=== PATIENT | male | born 1960 | race Caucasian/White ===

== ENCOUNTER 2017-11-10 09:57 | Day surgery (SDC) | payer OTHER, SELFPAY ==
[2017-11-06 15:20] VITALS: BMI 29.2
[2017-11-10] VITALS (10 sets, daily range): BP systolic 116–139; BP diastolic 71–96; PULSE 66–88; RESP 7–19; TEMP 36.2–37.2; O2SAT 97–100; BMI 29.2
--- NOTE | 2017-11-10 | DI.RAD.S_ITS ---
PROCEDURE: XR LUMBAR SPINE 1V INDICATIONS: L3-4 LAMINECTOMY TECHNIQUE: Single views of the lumbar spine were acquired. COMPARISON: None. FINDINGS: Single spot fluoroscopic intraoperative images demonstrating surgical instrument with the tip projecting in the posterior paraspinal soft tissues at the level of L3-L4 Dictated by: Fabrice Bates M.D. on 11/10/2017 at 13:12 Approved by: Fabrice Bates M.D. on 11/10/2017 at 13:12
[2017-11-10] MEDS: LACTATED RINGERS 1,000 ML 42 ML IV (10:37)
--- NOTE | 2017-11-10 10:50 | PM.PREOP ---
Pre-operative Note Interval Note Pre-op Check: Yes History & Physical Reviewed by Physician and Yes Exam Performed Changes: No
[2017-11-10] MEDS: MIDAZOLAM 2 MG/2 ML VIAL IV (10:56)
[2017-11-10] MEDS: CEFAZOLIN 2 GM/100 ML FROZ.PIGGY IV (11:06)
--- NOTE | 2017-11-10 11:37 | SUR.OPER ---
Prone on spine table, head in foam head support, padded chest and pelvic supports, gel pad at knees, lower legs supported by pillows; nipples, genitalia and toes free of pressure, arms secured on foam padded arm boards at <90 degrees abduction. Tape over blanket at thigh secured to table.
[2017-11-10] MEDS: THROMBIN (BOVINE) 5,000 UNIT VIAL 5000 UNIT TOP (11:52)
[2017-11-10] MEDS: SODIUM CHLORIDE 0.9% 1,000 ML, GENTAMICIN 80 MG IRR ×2 (11:53→12:32)
[2017-11-10] MEDS: VANCOMYCIN 1,000 MG VIAL 1000 MG TOP (11:57)
[2017-11-10] MEDS: BUPIVACAINE 0.25% (PF) 8 ML, fentaNYL 100 MCG INJ (12:20)
--- NOTE | 2017-11-10 12:29 | PM.OP.1 ---
Operative Date/Time/Diagnoses Date of procedure: 11/10/17 Time of procedure: 12:29 Pre-op diagnosis: Lumbar disc herniation with radiculopathy Post-op diagnosis: same Procedure & Clinicians Procedure: L3-4 right-sided diskectomy Use of microscope Placement of epidural catheter Same procedure as scheduled: Yes Indications: [age] year old male with intractable pain from a disc herniation and also with foot drop.. They had failed conservative management and requested operative intervention. Risks and benefits of surgery were discussed and appropriate consents were obtained. Surgeon: Abdullahi [employer]: Kristie Siddiqi Anesthesia Type: General Operative Notes Findings: None Closure Type: primary Specimen(s): none sent Estimated Blood Loss (mL): 20 Procedure in detail: Patient was brought to the operating room and intubated on the table. They were rolled over on the well-padded prone position on the Daniel table. A time-out was performed. Preoperative antibiotics were given. The back was prepped and draped in standard sterile fashion. Using fluoroscopy for localization, a 3 cm incision was made in the midline. We used Bovie to dissect through the lumbodorsal fascia and then subperiosteally dissect the paraspinal muscles off the well-marked right side. A marker was placed and x-ray was taken to confirm positioning. We then brought in the microscope. A right-sided laminotomy was performed at L3-4. As he did have moderate amount of stenosis, we did a fairly extensive facet overgrowth resection on the right-hand side as well as depress the dura with the ball probe while decompressing the opposite left side to fully open up the central canal. The dura was carefully retracted medially and the disc was exposed. Bipolar was used for hemostasis. We then performed an annulotomy with a scalpel and then a diskectomy with pituitary. This primarily came out piecemeal with small fragments. The ball probe was run into the disc space to make sure there were no further loose fragments. The ball probe was run below the dura to make sure there was no further pressure on the nerves. Everything was decompressed. The wound was irrigated. An epidural catheter was prepared with 8 mL of 0.25% Marcaine and 100 mcg of fentanyl. The dura was carefully depressed and the catheter was advanced 6 cm cephalad underneath remaining lamina without resistance. The fascia was then closed in layers. The epidural catheter was injected without complications. Vancomycin powder was placed in the wound. The superficial and the skin were closed. Sterile dressing was placed. Patient was rolled over extubated brought to recovery room with no complications. Complications: none Condition: stable Disposition: PACU Plan for aftercare: Outpatient. Follow-up in 1.5 weeks. Limited been twist lift for 6 weeks.
[2017-11-10] MEDS: HYDROMORPHONE 2 MG INJ 0.25 MG IV ×4 (12:56→13:19)
[2017-11-10] MEDS: OXYCODONE/ACETAMINOPHEN 5/325 TABLET 1 TAB PO ×2 (13:15→13:45)
--- NOTE | 2017-11-10 13:27 | SUR.PHASEI ---
diastolic in the 90's dr belloomn aware, istructed pt to take bp meds when he gets home.
--- NOTE | 2017-11-10 14:55 | SUR.PHASEII ---
late entry: pt's brought in, discussed d/c instructions with both, both voiced an understanding. dressing to lower back c/d/i. Neuro as assessed. pt left when ready and left in stable condition.
== END 2017-11-10 13:55 | disposition home or self-care (01) ==
PROVIDERS: Visit Provider Orthopaedic Surgery
PROC: (CPT 63030; principal; 2017-11-10 11:15)
DX: M51.16 Intervertebral disc disorders with radiculopathy, lumbar region (principal); F17.210 Nicotine dependence, cigarettes, uncomplicated; M21.379 Foot drop, unspecified foot
CPT/HCPCS: 63030; 72020; 76000; J0690; J1170; J2250; J2405; J2704; J3010